=== PATIENT | male | born 1935 | race Caucasian/White ===

== ENCOUNTER 2016-06-26 13:34 | Outpatient (CLI) | payer OTHER ==
--- NOTE | 2016-06-26 14:09 | DIAGNOSTIC IMAGING REPORT ---
PROCEDURE: XR CHEST 2 VIEW INDICATION: ACUTE BRONCHITIS TECHNIQUE: PA and lateral views. COMPARISON: Chest 03/16/1930 FINDINGS: Lungs are clear. Heart and mediastinum are normal. Thorax is normal. IMPRESSION: 1. Negative chest.
== END 2016-06-26 23:00 ==
LOC: XR SRH 13:34
DX: J20.9 Acute bronchitis, unspecified (principal)